=== PATIENT | female | born 1950 | race Caucasian/White ===

== ENCOUNTER 2018-04-20 17:19 | Inpatient (IN) | payer OTHER ==
[~2018-04-20] VITALS: Ht 160 cm; Wt 107.0 kg
[~2018-04-20 17:19] MED LIST: BENAZEPRIL10 M1 PO; CAT0.1 PO; CLEOCIN HCL300 MG PO; CLINDAMYCIN HC300 MG PO; CLONIDINE PO; DITROPAN XL5 MG PO; K10 PO; KLOR-CON M2020 MEQ PO; L40 PO; LAC PO; LASIX PO; LEVAQUIN500 M1 PO; LISINOPRIL/HCTZ; LISINOPRIL/HCTZ PO; NOR10 PO; POTASSIUM CHLORIDE PO; PRI20 PO; VITC PO
[2018-04-20 17:22] VITALS: Ht 160 cm; Wt 107.0 kg
[2018-04-20 18:02] LABS: BASOPHIL % 0.9 % (0-2); PLATELET COUNT 358 x10^3mcL (130-400); RED CELL DISTRIBUTION WIDTH 15.5 % (11.5-14.5)
[2018-04-20 18:08] LABS: CARBON DIOXIDE 28.1 mmol/L (21-32); CHLORIDE SERUM 105 mmol/L (98-107); CREATININE SERUM 0.9 mg/dL (0.6-1.0); GFR1 > 60 mL/min; GLUCOSE SERUM 102 mg/dL (74-106); POTASSIUM SERUM 4.3 mmol/L (3.5-5.1); SODIUM SERUM 140 mmol/L (136-145)
[2018-04-20 18:13] LABS: ALKALINE PHOSPHATASE 102 U/L (46-116); ALT/SGPT 21 U/L (14-59); AST/SGOT 17 U/L (15-37); BILIRUBIN TOTAL 0.2 mg/dL (0.20-1.00)
[2018-04-20 18:22] LABS: TOTAL PROTEIN, SERUM 9.2 g/dL (6.4-8.2)
[2018-04-20 20:19] VITALS: BP 147/75
[2018-04-21 06:10] VITALS: BP 144/75
[2018-04-21 08:49] VITALS: BP 132/72
[2018-04-21 17:32] VITALS: BP 122/68
[2018-04-21 20:25] VITALS: BP 137/55
[2018-04-22 06:16] VITALS: BP 131/53
[2018-04-22 08:27] VITALS: BP 120/72
[2018-04-22 16:18] VITALS: BP 138/70
[2018-04-22 20:55] VITALS: BP 134/67
[2018-04-23 05:30] VITALS: BP 128/77
[2018-04-23 08:22] VITALS: BP 123/66
[2018-04-23 15:21] VITALS: BP 123/66
== END 2018-04-23 15:55 | disposition home or self-care (01) | DRG 603 ==
LOC: ED 17:19 → MU 18:45
PROVIDERS: Emergency Medicine
DX: L03.116 Cellulitis of left lower limb (principal); I50.30 Unspecified diastolic (congestive) heart failure; B95.61 Methicillin susceptible Staphylococcus aureus infection as the cause of diseases classified elsewhere; B95.5 Unspecified streptococcus as the cause of diseases classified elsewhere; I10 Essential (primary) hypertension; E66.01 Morbid (severe) obesity due to excess calories; Z86.711 Personal history of pulmonary embolism
CPT/HCPCS: J0295; J1650; J3370; J3490; J7030; Q0092

== ENCOUNTER 2020-04-13 13:22 | Observation (INO) | payer OTHER, SELFPAY ==
[~2020-04-13] VITALS: Ht 157.5 cm; Wt 103.0 kg
[~2020-04-13 13:22] MED LIST changes: +ELIQUIS5 M1 PO
[2020-04-13 14:00] LABS: BASOPHIL % 0.2 % (0-2); PLATELET COUNT 221 x10^3mcL (130-400)
[2020-04-13 14:02] LABS: RED CELL DISTRIBUTION WIDTH 15.5 % (11.5-14.5)
[2020-04-13 14:17] LABS: ALKALINE PHOSPHATASE 63 U/L (46-116); ALT/SGPT 15 U/L (14-59); AST/SGOT 13 U/L (15-37); BILIRUBIN TOTAL 1.1 mg/dL (0.20-1.00); C REACTIVE PROTEIN 6.2 mg/dL (<=0.9); CALCIUM 9.8 mg/dL (8.5-10.1); CARBON DIOXIDE 26.7 mmol/L (21-32); CHLORIDE SERUM 104 mmol/L (98-107); CREATININE SERUM 1.2 mg/dL (0.6-1.0); GLUCOSE SERUM 130 mg/dL (74-106); LACTIC DEHYDROGENASE (LDH) 149 U/L (100-190); POTASSIUM SERUM 4.1 mmol/L (3.5-5.1); SODIUM SERUM 139 mmol/L (136-145); TOTAL PROTEIN, SERUM 6.8 g/dL (6.4-8.2)
[2020-04-13 14:20] LABS: ALBUMIN 3.2 g/dL (3.4-5.0)
[2020-04-13 15:34] LABS: UA SPECIFIC GRAVITY 1.015 (1.005-1.035); microscopic required? YES; urine erythrocyte 1+ (NEGATIVE)
[2020-04-13 18:30] VITALS: BP 126/64
[2020-04-13 20:55] VITALS: BP 127/64
[2020-04-13 23:14] VITALS: Ht 157.5 cm; Wt 103.0 kg
[2020-04-14 05:19] VITALS: BP 121/58
[2020-04-14 06:54] LABS: BASOPHIL % 0.1 % (0-2); PLATELET COUNT 188 x10^3mcL (130-400)
[2020-04-14 07:13] LABS: RED CELL DISTRIBUTION WIDTH 15.6 % (11.5-14.5)
[2020-04-14 07:29] LABS: CALCIUM 9.3 mg/dL (8.5-10.1); CARBON DIOXIDE 25.4 mmol/L (21-32); CHLORIDE SERUM 107 mmol/L (98-107); CREATININE SERUM 1.1 mg/dL (0.6-1.0); GLUCOSE SERUM 133 mg/dL (74-106); POTASSIUM SERUM 3.5 mmol/L (3.5-5.1); SODIUM SERUM 141 mmol/L (136-145)
[2020-04-14 08:17] VITALS: BP 126/68
[2020-04-14 12:14] VITALS: BP 109/60
[2020-04-14 16:49] VITALS: BP 115/70
[2020-04-14 20:05] VITALS: BP 123/65
[2020-04-15 05:17] VITALS: BP 112/65
[2020-04-15 06:57] LABS: BASOPHIL % 0.3 % (0-2); PLATELET COUNT 193 x10^3mcL (130-400)
[2020-04-15 07:10] LABS: CALCIUM 9.4 mg/dL (8.5-10.1); CARBON DIOXIDE 30.9 mmol/L (21-32); CHLORIDE SERUM 108 mmol/L (98-107); CREATININE SERUM 0.9 mg/dL (0.6-1.0); GLUCOSE SERUM 92 mg/dL (74-106); POTASSIUM SERUM 3.7 mmol/L (3.5-5.1); SODIUM SERUM 142 mmol/L (136-145)
[2020-04-15 07:27] LABS: RED CELL DISTRIBUTION WIDTH 15.4 % (11.5-14.5)
[2020-04-15 07:54] VITALS: BP 116/59
[2020-04-15] MEDS ORDERED: LEV500 PO (11:22)
[2020-04-15 12:05] VITALS: BP 122/60
[2020-04-15 12:20] VITALS: BP 122/60
== END 2020-04-15 15:15 | disposition home or self-care (01) ==
LOC: ED 13:22 → DU 15:48
PROVIDERS: Emergency Medicine; ADMIT Internal Medicine; ATTEND Internal Medicine
DX: R09.02 Hypoxemia (principal); N39.0 Urinary tract infection, site not specified; R50.9 Fever, unspecified; I95.9 Hypotension, unspecified; Z20.828 Contact with and (suspected) exposure to other viral communicable diseases
CPT/HCPCS: 36600; 83880; 85378; 87804; G0378; J0696; J1200; J7030; J7040; J7060; Q0092; U0003-CS